=== PATIENT | female | born 1965 | race Caucasian/White ===

== ENCOUNTER 2020-11-05 18:42 | Emergency (ER) | payer OTHER ==
--- NOTE | 2020-11-05 19:04 | PHYS DOC ---
General Adult EDM: Chief Complaint: ABNORMAL LABS HPI: HPI: Patient is a 55-year-old female being seen in the ER for a low INR. Patient states that she is from out of town visiting her son. She states that she takes Coumadin for mitral valve replacement. She had her INR checked 2 weeks ago and she stated that it was 6 to her doctor told her to discontinue her Coumadin for a couple days and eat some greens. She states she rechecked her INR today and it was 1.4. Patient called her primary care provider and they told her to follow-up on Saturday. (PETERSON HECK APRN) Review of Systems: Review of Systems: 14 body systems of the review of systems have been reviewed. See HPI for pertinent positive and negative responses, otherwise all other systems are negative, nonpertinent or noncontributory (PETERSON HECK APRN) Physical Exam: PE: Constitutional: Well developed, well nourished, no acute distress, non-toxic appearance. [] HENT: Normocephalic, atraumatic Eyes: PERRL, EOMI, conjunctiva normal, no discharge. [] Neck: Normal range of motion, no stridor Cardiovascular:Heart rate regular rhythm, no murmur [] Lungs & Thorax: Bilateral breath sounds clear to auscultation [] Abdomen: Soft, no masses Skin: Warm, dry, no erythema, no rash. [] Back: Normal range of motion Extremities: No tenderness, no cyanosis, no clubbing, ROM intact, no edema. [] Neurologic: Alert and oriented X 3, normal motor function, normal sensory function, no focal deficits noted. [] Psychologic: Affect normal, judgement normal, mood normal. [] (PETERSON HECK APRN) Current Patient Data: Labs: Laboratory Tests Test 11/05/20 19:25 White Blood Count 8.0 x10^3/uL Red Blood Count 4.63 x10^6/uL Hemoglobin 14.0 g/dL Hematocrit 45.7 % Mean Corpuscular Volume 99 fL Mean Corpuscular Hemoglobin 30 pg Mean Corpuscular Hemoglobin Concent 31 g/dL Red Cell Distribution Width 15.8 % Platelet Count 218 x10^3/uL Neutrophils (%) (Auto) 61 % Lymphocytes (%) (Auto) 29 % Monocytes (%) (Auto) 8 % Eosinophils (%) (Auto) 2 % Basophils (%) (Auto) 0 % Neutrophils # (Auto) 4.9 x10^3uL Lymphocytes # (Auto) 2.3 x10^3/uL Monocytes # (Auto) 0.6 x10^3/uL Eosinophils # (Auto) 0.2 x10^3/uL Basophils # (Auto) 0.0 x10^3/uL Prothrombin Time 11.9 SEC Prothromb Time International Ratio 1.2 Activated Partial Thromboplast Time 27 SEC Sodium Level 139 mmol/L Potassium Level 3.9 mmol/L Chloride Level 101 mmol/L Carbon Dioxide Level 30 mmol/L Anion Gap 8 Blood Urea Nitrogen 31 mg/dL Creatinine 0.8 mg/dL Estimated GFR (Cockcroft-Gault) 74.7 BUN/Creatinine Ratio 39 Glucose Level 75 mg/dL Calcium Level 9.0 mg/dL Total Bilirubin 0.4 mg/dL Aspartate Amino Transf (AST/SGOT) 24 U/L Alanine Aminotransferase (ALT/SGPT) 36 U/L Alkaline Phosphatase 97 U/L Total Protein 7.7 g/dL Albumin 4.3 g/dL Albumin/Globulin Ratio 1.3 (PETERSON HECK APRN) EKG: EKG: [] (PETERSON HECK APRN) Radiology/Procedures: Radiology/Procedures: [] (PETERSON HECK APRN) Heart Score: C/O Chest Pain: No Risk Factors: Risk Factors: DM, Current or recent (<one month) smoker, HTN, HLP, family history of CAD, obesity. Risk Scores: Score 0 - 3: 2.5% MACE over next 6 weeks - Discharge Home Score 4 - 6: 20.3% MACE over next 6 weeks - Admit for Clinical Observation Score 7 - 10: 72.7% MACE over next 6 weeks - Early Invasive Strategies (PETERSON HECK APRN) Course & Med Decision Making: Course & Med Decision Making Pertinent Labs and Imaging studies reviewed. (See chart for details) [] Patient is a 55-year-old female being seen in the ER for a low INR reading at home. Blood work obtained in the ER. His INR was 1.2. Dr. Wright consulted physician and they advised starting patient on 1 mg/kg Lovenox. Patient is advised to continue taking her usual 7.5 mg Coumadin. Patient advised to take Lovenox injections at home twice a day. Patient is agreeable with care plan. She states that she is at to administer Lovenox shots in her belly in the past. 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 I discussed with patient all findings and diagnostic testing as well as the need to follow-up with PCP for further evaluation and treatment or return to the ER if any new or worsening symptoms. Strict return precautions were also discussed at length. Patient voiced understanding and agreement with the plan. Patient is hemodynamically stable at the time of disposition. (PETERSON HECK APRN) Course & Med Decision Making Did not see or evaluate patient. Agree with STATION EXAMINER's work-up and disposition per note. (TRISTAN WRIGHT MD) Dragon Disclaimer: Dragon Disclaimer: This electronic medical record was generated, in whole or in part, using a voice recognition dictation system. (PETERSON HECK APRN) Departure Departure: Impression: Primary Impression: Subtherapeutic international normalized ratio (INR) Disposition: 01 HOME / SELF CARE / HOMELESS Condition: GOOD Referrals: PCP,UNKNOWN (PCP) Patient Instructions: Prothrombin Time, International Normalized Ratio Additional Instructions: You were seen in the ER today for a subtherapeutic INR level. You were given a dose of subcutaneous Lovenox in the ER. Continue taking your Coumadin as directed at 7.5 mg. Do not take any additional Coumadin. Do not eat any leafy greens you are being discharged home with a prescription for Lovenox. Please give yourself these injections twice a day. Follow-up with your primary care provider on Saturday. If you develop shortness of breath, chest pain, confusion, headache, weakness, slurred speech, vomiting, bleeding please return to the ER. EMERGENCY DEPARTMENT GENERAL DISCHARGE INSTRUCTIONS Thank you for coming to [facility] ([facility]) today and trusting us with you care. We trust that you had a positivie experience in our Emergency Department. If you wish to speak to the department management, you may call the director at [phone]. YOUR FOLLOW UP INSTRUCTIONS ARE FOLLOWS: 1. Do you have a private Doctor? If you do not have a private doctor, please ask for a resource list of physicians or clinics that may be able to assist you with follow up care. 2. The Emergency Physician has interpreted your x-rays. The X-Ray specialist will also review them. If there is a change in the findings, you will be notified in 48 hours when at all possible. 3. A lab test or culture has been done, your results will be reviewed and you will be notified if you need a change in treatment. ADDITIONAL INSTRUCTIONS AND INFORMATION: 1. Your care today has been supervised by a physician who is specially trained in emergency care. Many problems require more than one evaluation for a complete diagnosis and treatment. We recommend that you schedule your follow up appointment as recommended to ensure complete treatment of you illness or injury. If you are unable to obtain follow up care and continue to have a problem, or if your condition worsens, we recommend that you return to the ED. 2. We are not able to safely determine your condition over the phone nor are we able to give sound medical advice over the phone. For these safety reasons, if you call for medical advice we will ask you to come to the ED for further evaluation. 3. If you have any questions regarding these discharge instructions please call the ED at [phone]. SAFETY INFORMATION: In the interest of safety, wellness, and injury prevention; we encourage you to wear your sealbelt, if you smoke; quite smoking, and we encourage family to use a protective helmet for bicycling and other sporting events that present an increased risk for head injury. IF YOUR SYMPTOMS WORSEN OR NEW SYMPTOMS DEVELOP, OR YOU HAVE CONCERNS ABOUT YOUR CONDITION; OR IF YOUR CONDITION WORSENS WHILE YOU ARE WAITING FOR YOUR FOLLOW UP APPOINTMENT; EITHER CONTACT YOUR PRIMARY CARE DOCTOR, THE PHYSICIAN WHOSE NAME AND NUMBER YOU WERE GIVEN, OR RETURN TO THE ED IMMEDIATELY. Scripts Enoxaparin Sodium (LOVENOX) 60 Mg/0.6 Ml Disp.syrin 60 MG SQ BID for vte prophylaxis for 3 Days, #6 DIS.SYR 0 Refills Prov: PETERSON HECK APRN 11/05/20 PETERSON HECK APRN Nov 05, 2020 19:04 TRISTAN WRIGHT MD Nov 05, 2020 22:10
[2020-11-05 19:46] LABS: BASO % 0 % (0-3); EOS # 0.2 x10^3/uL (0.0-0.7); EOS % 2 % (0-3); HEMATOCRIT 45.7 % (36.0-47.0); LYMPH # 2.3 x10^3/uL (1.0-4.8); LYMPH % 29 % (24-48); MEAN CORPUSCULAR HEMOGLOBIN 30 pg (25-35); MEAN CORPUSCULAR HGB CONC 31 g/dL (31-37); MEAN CORPUSCULAR VOLUME 99 fL (79-100); MONO # 0.6 x10^3/uL (0.0-1.1); MONO % 8 % (0-9); NEUT # 4.9 x10^3uL (1.8-7.7); NEUT % 61 % (31-73); PLATELET COUNT 218 x10^3/uL (140-400); RED BLOOD COUNT 4.63 x10^6/uL (3.50-5.40); RED CELL DISTRIBUTION WIDTH 15.8 % (11.5-14.5)
[2020-11-05 19:49] LABS: CREATININE 0.8 mg/dL (0.6-1.0); GFR 74.7; POTASSIUM 3.9 mmol/L (3.5-5.1)
[2020-11-05 19:54] LABS: ALBUMIN 4.3 g/dL (3.4-5.0); ALBUMIN/GLOBULIN RATIO 1.3 (1.0-1.7); TOTAL BILIRUBIN 0.4 mg/dL (0.2-1.0); TOTAL PROTEIN 7.7 g/dL (6.4-8.2)
[2020-11-05] MEDS ORDERED: ENOXAPARIN ** NOTE DOSE ** SYRINGE SQ ONE ×2 (20:30→21:11)
[2020-11-05] MEDS ORDERED: MORPHINE SULFATE 4 MG/ML DISP.SYRIN. IM ONE (20:30)
[2020-11-05] MEDS ORDERED: ENOX60DI SQ (20:31)
[2020-11-05] MEDS ORDERED: MORPHINE SULFATE 4 MG/ML DISP.SYRIN. ONE (21:12)
== END 2020-11-05 21:33 | disposition home or self-care (01) ==
LOC: ER 18:42
DX: D68.8 Other specified coagulation defects (principal)
CPT/HCPCS: 36415; 80053; 85025; 85610; 85730; 96372; 99284; J1650; J2270